=== PATIENT | female | born 1970 | race Caucasian/White ===

== ENCOUNTER 2021-07-07 16:50 | Inpatient (IN) | payer OTHER ==
[~2021-07-07] VITALS: Ht 170.2 cm; Wt 149.7 kg
[2021-07-07 17:43] LABS: HEMOGLOBIN 15.7 gm/dl (12.3-15.3); RED BLOOD COUNT 5.24 M/UL (4.00-5.10); WHITE BLOOD COUNT 8.4 K/UL (4.5-11.0)
[2021-07-07 18:10] LABS: BUN/CREATININE RATIO 18 (0-10)
[2021-07-08 04:24] LABS: HEMOGLOBIN 14.8 gm/dl (12.3-15.3); RED BLOOD COUNT 4.96 M/UL (4.00-5.10); WHITE BLOOD COUNT 7.5 K/UL (4.5-11.0)
[2021-07-08 04:40] LABS: BUN/CREATININE RATIO 25 (0-10)
[2021-07-08] MEDS ORDERED: ALBUTEROL2.5 MG/3 M INH (09:05)
[2021-07-08] MEDS ORDERED: VITAMIN D325 MCG PO (09:07)
[2021-07-08] MEDS ORDERED: TYLENOL EXTRA500 MG PO (09:08)
[2021-07-08] MEDS ORDERED: ADVIL200 MG PO (09:08)
[2021-07-09 04:43] LABS: RED BLOOD COUNT 4.91 M/UL (4.00-5.10); WHITE BLOOD COUNT 8.2 K/UL (4.5-11.0)
[2021-07-09 05:14] LABS: BUN/CREATININE RATIO 22 (0-10)
[2021-07-10 03:42] LABS: HEMOGLOBIN 13.9 gm/dl (12.3-15.3); RED BLOOD COUNT 4.73 M/UL (4.00-5.10); WHITE BLOOD COUNT 8.1 K/UL (4.5-11.0)
[2021-07-10 04:19] LABS: BUN/CREATININE RATIO 23 (0-10)
[2021-07-11 07:09] LABS: HEMOGLOBIN 14.7 gm/dl (12.3-15.3); RED BLOOD COUNT 4.99 M/UL (4.00-5.10); WHITE BLOOD COUNT 8.5 K/UL (4.5-11.0)
[2021-07-11 08:00] LABS: BUN/CREATININE RATIO 27 (0-10)
--- NOTE | 2021-07-11 15:25 | NUR ---
Oxygen saturation 85% on room air at rest.
[2021-07-12 10:22] LABS: HEMOGLOBIN 14.2 gm/dl (12.3-15.3); RED BLOOD COUNT 4.82 M/UL (4.00-5.10); WHITE BLOOD COUNT 7.7 K/UL (4.5-11.0)
[2021-07-12 10:42] LABS: BUN/CREATININE RATIO 26 (0-10)
[2021-07-12] MEDS ORDERED: OMNICEF 300 MG300 MG PO ×2 (13:50→13:54)
[2021-07-12] MEDS ORDERED: ELIQUIS 2.5 MG2.5 MG PO (13:50)
[2021-07-12] MEDS ORDERED: DECADRON6 MG PO (13:54)
[2021-07-12] MEDS ORDERED: BUDESONIDE0.5 MG/2 M NEB (13:54)
[2021-07-12] MEDS ORDERED: DOXYCYCLINE HY100 M2 PO (13:54)
[2021-07-12] MEDS ORDERED: IPRAT-ALBUT 0.5-3 ML NEB (13:54)
[2021-07-12] MEDS ORDERED: PROTONIX 40 MG40 M1 PO (13:59)
[2021-07-12] MEDS ORDERED: LACTINEX TABLET1 EA PO (13:59)
== END 2021-07-12 18:00 | disposition home or self-care (01) | DRG 177 ==
LOC: ER1 16:50 → 3 EAST 21:15 → CDU 21:15 → 3 EAST 07-08 07:44 → MED SURG 4 07-08 17:00
PROVIDERS: Internal Medicine; Physician Assistant; ADMIT Internal Medicine
PROC: 8E0ZXY6 Isolation (ICD-10-PCS; principal; 2021-07-07)
PROC: 3E0333Z Introduction of Anti-inflammatory into Peripheral Vein, Percutaneous Approach (ICD-10-PCS; 2021-07-07)
PROC: XW033E5 Introduction of Remdesivir Anti-infective into Peripheral Vein, Percutaneous Approach, New Technology Group 5 (ICD-10-PCS; 2021-07-07)
DX: U07.1 COVID-19 (principal); J12.82 Pneumonia due to coronavirus disease 2019; J96.01 Acute respiratory failure with hypoxia; J15.9 Unspecified bacterial pneumonia; Z68.43 Body mass index [BMI] 50.0-59.9, adult; R73.9 Hyperglycemia, unspecified; E55.9 Vitamin D deficiency, unspecified; E66.9 Obesity, unspecified; Z98.51 Tubal ligation status; Z85.820 Personal history of malignant melanoma of skin; Z99.81 Dependence on supplemental oxygen
CPT/HCPCS: 36415; 71045; 80048; 80053; 82550; 82553; 82962; 83036; 83874; 84484; 85025; 85027; 86140; 93005; 94640; 94760; 96374; 99285; G0378; J0248; J0696; J1100; J1650; J7030; U0002